=== PATIENT | female | born 1995 | race Caucasian/White ===

== ENCOUNTER 2018-11-02 02:47 | Emergency (ER) | payer OTHER | END 2018-11-02 04:25 | disposition home or self-care (01) | LOC: ERS 02:47 | DX: S03.03XA Dislocation of jaw, bilateral, initial encounter (principal); F32.9 Major depressive disorder, single episode, unspecified; X50.9XXA Other and unspecified overexertion or strenuous movements or postures, initial encounter; Y93.89 Activity, other specified | CPT/HCPCS: 21480 ==

== ENCOUNTER 2020-01-14 20:51 | Emergency (ER) | payer OTHER | END 2020-01-14 21:30 | disposition home or self-care (01) | LOC: ERS 20:51 | DX: S03.03XA Dislocation of jaw, bilateral, initial encounter (principal); F32.9 Major depressive disorder, single episode, unspecified; X50.1XXA Overexertion from prolonged static or awkward postures, initial encounter | CPT/HCPCS: 21480 ==

== ENCOUNTER 2023-04-11 08:04 | Emergency (ER) | payer BC | END 2023-04-11 08:44 | disposition home or self-care (01) | LOC: ERS 08:04 | DX: S03.00XA Dislocation of jaw, unspecified side, initial encounter (principal); X58.XXXA Exposure to other specified factors, initial encounter; Y93.89 Activity, other specified | CPT/HCPCS: 21480 ==

== ENCOUNTER 2023-11-22 17:09 | Emergency (ER) | payer BC | END 2023-11-22 17:49 | disposition home or self-care (01) | LOC: ERS 17:09 | DX: S03.03XA Dislocation of jaw, bilateral, initial encounter (principal); X58.XXXA Exposure to other specified factors, initial encounter | CPT/HCPCS: 21480 ==